=== PATIENT | female | born 1985 | race Caucasian/White ===

== ENCOUNTER 2018-08-10 17:33 | Emergency (ER) | payer SELFPAY ==
[~2018-08-10] VITALS: Ht 170.2 cm; Wt 99.8 kg
--- NOTE | 2018-08-10 17:55 | ED EENT ---
History of Present Illness General Stated Complaint: CONGESTED,EARACHED Source: patient Exam Limitations: no limitations History of Present Illness Date Seen by Provider: Aug 10, 2018 Time Seen by Provider: 17:49 Initial Comments 32-year-old female who presents to the emergency room with complaints of left ear pain that started this morning. She reports that she took Tylenol 30 minutes prior to arrival but does not think had time to work. She reports that she's also had some sinus congestion. Denies fevers. Location: ear (L) Prearrival Treatment: over the counter meds (30 minutes prior to arrival) Associated Symptoms: nasal congestion/drainage Allergies and Home Medications Patient Home Medication List Home Medication List Reviewed: Yes Review of Systems Review of Systems Constitutional: no symptoms reported, see HPI Ears: See HPI, Pain (left ear pain) Nose: see HPI, congestion All Other Systems Reviewed Negative Unless Noted: Yes Past Gqfwqry-Sknsmd-Pvklcc Hx Past Med/Social Hx: Reviewed Nursing Past Med/Soc Hx Patient Social History Recent Foreign Travel: No Contact w/Someone Who Travel: No Family Medical History Reviewed Nursing Family Hx Physical Exam Height, Weight, BMI Height: '" Weight: lbs. oz. kg; BMI Method: General Appearance: WD/WN, no apparent distress Eyes: bilateral eye normal inspection, bilateral eye PERRL, bilateral eye EOMI Ears: bilateral ear auricle normal, bilateral ear canal normal, bilateral ear TM normal (effusion bilaterally), bilateral ear other Mouth/Throat: normal mouth inspection, pharynx normal Cardiovascular: normal peripheral pulses, regular rate, rhythm, no edema, no gallop, no JVD, no murmur Respiratory: chest non-tender, lungs clear, normal breath sounds, no respiratory distress, no accessory muscle use Neurologic/Psychiatric: alert, normal mood/affect, oriented x 3 Skin: normal color, warm/dry Progress/Results/Core Measures Results/Orders My Orders Orders - SRINIVASAN ELENA Influenza A And B Antigens (08/10/18 17:39) Departure Impression Primary Impression: Acute effusion of both middle ears Disposition: 01 HOME, SELF-CARE Condition: Stable/Unchanged Departure-Patient Inst. Decision time for Depature: 17:52 Referrals: NO,LOCAL PHYSICIAN (PCP) Primary Care Physician Patient Instructions: Serous Otitis Media (DC) Add. Discharge Instructions: You may use Tylenol and ibuprofen as directed by the bottle for pain relief. Igsm-frd-xmycush oral decongestants and nasal decongestants could aid in alleviating your congestion. Benadryl as directed by the bottle will help to dry up the fluids. Follow-up with her primary care provider within 1 week. Return back to the emergency room for any worsening symptoms or concerns as needed. SRINIVASAN ELENA Aug 10, 2018 17:55
[2018-08-10 19:05] VITALS: BP 122/80
== END 2018-08-10 19:05 | disposition home or self-care (01) ==
LOC: ER 17:35
DX: H93.93 Unspecified disorder of ear, bilateral (principal)
CPT/HCPCS: 99282

== ENCOUNTER 2019-03-02 18:36 | Emergency (ER) | payer OTHER ==
[~2019-03-02] VITALS: Ht 170.2 cm; Wt 99.8 kg
--- NOTE | 2019-03-02 19:06 | ED Back Pain ---
General Chief Complaint: Back Problems Stated Complaint: L SIDE PAIN Nursing Triage Note: pt states she has had left side/flank pain for 2 weeks. Yesterday she states she urianted blood and now can only urinate a little bit. NO hx of stones Nursing Sepsis Screen: No Definite Risk Source of Information: Patient Exam Limitations: No Limitations History of Present Illness Date Seen by Provider: Mar 02, 2019 Time Seen by Provider: 19:04 Initial Comments To ER with left flank pain for 2 weeks. She's had a couple of episodes of urinating blood, now only dribbles when she urinates and still feels the urge to urinate. She has some intermittent nausea. No fevers or chills. No history of this. Location: Other (Left flank pain) Timing/Duration: Other Severity: Moderate Pain/Injury Location: Abdomen Associated Symptoms: denies symptoms Allergies and Home Medications Allergies Coded Allergies: No Known Drug Allergies (Unverified , 08/10/18) Home Medications Hydrocodone Bit/Acetaminophen 1 Tab Tab, 1 EACH PO Q4-6HR PRN for PAIN-MODERATE Prescribed by: LELA ROJAS on 03/02/191953 Sulfamethoxazole/Trimethoprim 1 Each Tablet, 1 EACH PO BID Prescribed by: LELA ROJAS on 03/02/191953 Tamsulosin HCl 0.4 Mg Cap, 0.4 MG PO DAILY Prescribed by: LELA ROJAS on 03/02/191953 Patient Home Medication List Home Medication List Reviewed: Yes Review of Systems Constitutional: see HPI EENTM: see HPI Respiratory: no symptoms reported Cardiovascular: no symptoms reported Genitourinary: no symptoms reported Musculoskeletal: see HPI Skin: no symptoms reported Psychiatric/Neurological: No Symptoms Reported Past Yykdnqy-Bulfza-Eiigbw Hx Patient Social History Type Used: Cigarettes Recent Foreign Travel: No Contact w/Someone Who Travel: No Recent Infectious Disease Expo: No Recent Hopitalizations: No Immunizations Up To Date Tetanus Booster (TDap): Unknown PED Vaccines UTD: Yes Seasonal Allergies Seasonal Allergies: No Past Medical History Surgeries: No Respiratory: No Cardiac: No Neurological: No [employer] History: Tubal Ligation Genitourinary: No Gastrointestinal: No Musculoskeletal: No Endocrine: No HEENT: No Cancer: No Psychosocial: No Integumentary: No Blood Disorders: No Physical Exam Vital Signs Vital Signs - First Documented 03/02/19 18:44 Temp 99.0 Pulse 116 Resp 20 B/P (MAP) 145/93 (110) Pulse Ox 100 O2 Delivery Room Air Capillary Refill : Less Than 3 Seconds Height, Weight, BMI Height: 5'7.00" Weight: 220lbs. oz. 99.391574gx; BMI Method:Stated General Appearance: No Apparent Distress, WD/WN Neck: Full Range of Motion, Normal Inspection Cardiovascular: Normal Peripheral Pulses, Tachycardia Respiratory: Normal Breath Sounds, No Accessory Muscle Use, No Respiratory Distress Gastrointestinal: Non Tender, Soft Extremity: Normal Capillary Refill, Normal Inspection Neurologic/Psychiatric: Alert, Oriented x3 Skin: Normal Color, Warm/Dry Progress/Results/Core Measures Results/Orders Lab Results Laboratory Tests Test 03/02/19 19:00 Range/Units White Blood Count 13.5 H 4.3-11.0 10^3/uL Red Blood Count 5.26 4.35-5.85 10^6/uL Hemoglobin 14.4 11.5-16.0 G/DL Hematocrit 44 35-52 % Mean Corpuscular Volume 84 80-99 FL Mean Corpuscular Hemoglobin 27 25-34 PG Mean Corpuscular Hemoglobin Concent 33 32-36 G/DL Red Cell Distribution Width 14.8 H 10.0-14.5 % Platelet Count 345 130-400 10^3/uL Mean Platelet Volume 9.6 7.4-10.4 FL Neutrophils (%) (Auto) 69 42-75 % Lymphocytes (%) (Auto) 23 12-44 % Monocytes (%) (Auto) 6 0-12 % Eosinophils (%) (Auto) 2 0-10 % Basophils (%) (Auto) 0 0-10 % Neutrophils # (Auto) 9.3 H 1.8-7.8 X 10^3 Lymphocytes # (Auto) 3.1 1.0-4.0 X 10^3 Monocytes # (Auto) 0.8 0.0-1.0 X 10^3 Eosinophils # (Auto) 0.3 0.0-0.3 10^3/uL Basophils # (Auto) 0.0 0.0-0.1 10^3/uL Urine Color YELLOW Urine Clarity SLIGHTLY CLOUDY Urine pH 6.5 5-9 Urine Specific [place] 1.015 L 1.016-1.022 Urine Protein 1+ H NEGATIVE Urine Glucose (UA) NEGATIVE NEGATIVE Urine Ketones NEGATIVE NEGATIVE Urine Nitrite POSITIVE H NEGATIVE Urine Bilirubin NEGATIVE NEGATIVE Urine Urobilinogen NORMAL NORMAL MG/DL Urine Leukocyte Esterase 3+ H NEGATIVE Urine RBC (Auto) 2+ H NEGATIVE Urine RBC 0-2 /HPF Urine WBC 50-100 H /HPF Urine Squamous Epithelial Cells 0-2 /HPF Urine Crystals NONE /LPF Urine Bacteria LARGE H /HPF Urine Casts NONE /LPF Urine Mucus NEGATIVE /LPF Urine Culture Indicated YES Sodium Level 139 135-145 MMOL/L Potassium Level 3.9 3.6-5.0 MMOL/L Chloride Level 107 98-107 MMOL/L Carbon Dioxide Level 20 L 21-32 MMOL/L Anion Gap 12 5-14 MMOL/L Blood Urea Nitrogen 9 7-18 MG/DL Creatinine 0.87 0.60-1.30 MG/DL Estimat Glomerular Filtration Rate > 60 BUN/Creatinine Ratio 10 Glucose Level 148 H 70-105 MG/DL Calcium Level 9.3 8.5-10.1 MG/DL Serum Test, Qualitative NEGATIVE NEGATIVE My Orders Orders - LELA ROJAS [employer] WORK DIRECTOR Ua Culture If Indicated (03/02/19 18:49) Hcg,Qualitative Serum (03/02/19 18:49) Cbc With Automated Diff (03/02/19 18:50) Basic Metabolic Panel (03/02/19 18:50) Ketorolac Injection (Toradol Injection) (03/02/19 19:15) Lactated Ringers (Lr 1000 Ml Iv Solution (03/02/19 19:15) Ct Abd/Pelvis Wo(Kidney Stone) (03/02/19 19:04) Urine Culture (03/02/19 19:00) Ceftriaxone For Iv Use (Rocephin For I (03/02/19 20:00) Fentanyl Injection (Sublimaze Injection (03/02/19 20:00) Rx-Hydrocodone/Apap 5-325 Mg (Rx-Vicodin (03/02/19 20:00) Tamsulosin Capsule (Flomax Capsule) (03/02/19 20:00) Medications Given in ED Current Medications Medications Dose Ordered Sig/Daisha Route Start Time Stop Time Status Last Admin Dose Admin Acetaminophen/ Hydrocodone Bitart 1 ea Q4H PRN PO 03/02/19 20:00 03/02/19 20:02 1 EA Ceftriaxone Sodium 1000 mg/ Sterile Water 10 ml @ 200 mls/hr ONCE ONCE IV 03/02/19:00 03/02/19 20:02 DC 03/02/19 20:01 200 MLS/HR Fentanyl Citrate 50 mcg ONCE ONCE IVP 03/02/19 20:00 03/02/19 20:01 DC 03/02/19 20:02 50 MCG Ketorolac Tromethamine 15 mg ONCE ONCE IVP 03/02/19 19:15 03/02/19 19:16 DC 03/02/19 19:32 15 MG Vital Signs/I&O 03/02/19 18:44 Temp 99.0 Pulse 116 Resp 20 B/P (MAP) 145/93 (110) Pulse Ox 100 O2 Delivery Room Air Blood Pressure Mean: 110 Diagnostic Imaging Diagonstic Imaging: CT Comments NAME: DIOR BELCHER [facility] REC#: [id number] PT STATUS: REG ER : 1985 PHYSICIAN: LELA ROJAS APRN ADMIT DATE: 03/02/19/ER Draft Date of Exam:03/02/19 CT ABD/PELVIS WO(KIDNEY STONE) PROCEDURE: CT urinary tract, rule out kidney stone. TECHNIQUE: Multiple contiguous axial images were obtained through the abdomen and pelvis without the use of intravenous contrast. Auto Exposure Controls were utilized during the CT exam to meet ALARA standards for radiation dose reduction. DATE: March 02, 2019. COMPARISON: None. INDICATION: 33-year-old female, left flank pain for two weeks with hematuria. History of cervical cancer. FINDINGS: There are limitations for evaluation of the abdominal organs, neoplastic processes, abscess and limited evaluation of the vasculature relating to the lack of intravenous contrast. There is a 3 mm noncalcified right middle lobe pulmonary nodule on axial image 5. The additional visualized portions of the lung bases are clear. The heart is not enlarged. There is no identified pericardial effusion. The liver is normal in size and contour. The gallbladder is unremarkable. There is no identified intrahepatic or extrahepatic bile duct dilation. The main pancreatic duct is not abnormally dilated. Unremarkable noncontrast appearance of the pancreatic parenchyma. The spleen is normal in size. The adrenal glands are unremarkable. There are multiple bilateral nonobstructing renal stones. The medullary pyramids are hyperdense, bilaterally, suggesting medullary nephrocalcinosis. There is mild left hydroureteronephrosis. There are two subjacent stones in the left distal ureter seen on axial image 107, measuring 4 mm and 2 mm in size. The urinary bladder is underdistended. There is no obvious urinary bladder wall thickening. There is no identified right ureteral stone or right hydronephrosis. There is a fat-containing lesion in the left kidney best seen on coronal image 70 compatible with an angiomyolipoma which measures 8 mm in size. The intestinal tract is not distended. The appendix is best seen on axial image 69 and is normal. There is no free intraperitoneal air. There is no drainable fluid collection. There is no free pelvic fluid. There is no identified abnormally enlarged lymph node in the abdomen or pelvis which meets CT size criteria for adenopathy. There is no identified acute bony abnormality. IMPRESSION: CT abdomen and pelvis: 1. Two adjacent stones in the left distal ureter measuring 4 mm and 2 mm in size with associated mild left hydroureteronephrosis. 2. Several nonobstructing bilateral renal stones with hyperdense medullary pyramids suggesting medullary nephrocalcinosis. 3. 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 Dictated on workstation # [id number] Dict: 03/02/191931 Trans: 03/02/191953 [facility] [id number] Interpreted by: ARNAUD MURGUIA MD Electronically signed by: Departure Impression Primary Impression: Left ureteral stone Disposition: 01 HOME, SELF-CARE Condition: Stable Departure-Patient Inst. Decision time for Depature: 19:52 Referrals: NO,LOCAL PHYSICIAN (PCP/Family) Primary Care Physician Patient Instructions: Kidney Stones (DC) Add. Discharge Instructions: 1. Medication as directed 2. Return to ER for any high fever, worsening pain, vomiting that she cannot stop or other concerns. Follow-up with your doctor later this week for recheck. All discharge instructions reviewed with patient and/or family. Voiced understanding. Scripts Sulfamethoxazole/Trimethoprim (Bactrim Ds Tablet) 1 Each Tablet 1 EACH PO BID, #14 TAB Prov: LELA ROJAS APRN 03/02/19 Tamsulosin HCl (Flomax) 0.4 Mg Cap 0.4 MG PO DAILY, #14 CAP Prov: LELA ROJAS APRN 03/02/19 Hydrocodone Bit/Acetaminophen (Hydrocodone/Acetaminophen 5/325mg Tablet) 1 Tab Tab 1 EACH PO Q4-6HR PRN for PAIN-MODERATE MDD 10 for 3 Days, #14 TAB Prov: LELA ROJAS APRN 03/02/19 Work/School Note: Work Release Form Date Seen in the Emergency Department: Mar 02, 2019 Return to Work: Mar 04, 2019 LELA ROJAS APRN Mar 02, 2019 19:06
[2019-03-02 19:09] LABS: BASOPHILS % (AUTO) 0 % (0-10); EOSINOPHILS # (AUTO) 0.3 10^3/uL (0.0-0.3); EOSINOPHILS % (AUTO) 2 % (0-10); HEMATOCRIT 44 % (35-52); HEMOGLOBIN 14.4 G/DL (11.5-16.0); LYMPHOCYTES # (AUTO) 3.1 X 10^3 (1.0-4.0); LYMPHOCYTES % (AUTO) 23 % (12-44); MEAN CORPUSCULAR HEMOGLOBIN 27 PG (25-34); MEAN CORPUSCULAR HGB CONC 33 G/DL (32-36); MEAN CORPUSCULAR VOLUME 84 FL (80-99); MEAN PLATELET VOLUME 9.6 FL (7.4-10.4); MONOCYTES # (AUTO) 0.8 X 10^3 (0.0-1.0); MONOCYTES % (AUTO) 6 % (0-12); NEUTROPHILS # (AUTO) 9.3 X 10^3 (1.8-7.8); NEUTROPHILS % (AUTO) 69 % (42-75); PLATELET COUNT 345 10^3/uL (130-400); RED CELL DISTRIBUTION WIDTH 14.8 % (10.0-14.5); WHITE BLOOD COUNT 13.5 10^3/uL (4.3-11.0)
[2019-03-02 19:10] LABS: BILIRUBIN,URINE NEGATIVE (NEGATIVE); CLARITY,URINE SLIGHTLY CLOUDY; COLOR,URINE YELLOW; GLUCOSE, URINE (UA) NEGATIVE (NEGATIVE); KETONES,URINE NEGATIVE (NEGATIVE); LEUKOCYTE ESTERASE ,URINE 3+ (NEGATIVE); NITRITE,URINE POSITIVE (NEGATIVE); PH,URINE 6.5 (5-9); PROTEIN,URINE 1+ (NEGATIVE); UROBILINOGEN,URINE NORMAL (NORMAL)
[2019-03-02 19:15] LABS: BACTERIA,URINE LARGE /HPF; RBC,URINE 0-2 /HPF; SQUAMOUS EPITHELIAL CELL,UR 0-2 /HPF; WBC,URINE 50-100 /HPF
[2019-03-02] MEDS ORDERED: LACTATED RINGERS 1,000 ML IV SCH (19:15)
[2019-03-02] MEDS ORDERED: KETOROLAC 30 MG/ML VIAL IVP ONE (19:15)
[2019-03-02 19:26] LABS: BUN/CREATININE RATIO 10; CALCIUM 9.3 MG/DL (8.5-10.1); CARBON DIOXIDE 20 MMOL/L (21-32); CHLORIDE 107 MMOL/L (98-107); CREATININE SERUM 0.87 MG/DL (0.60-1.30); GFR ESTIMATED > 60; GLUCOSE 148 MG/DL (70-105); POTASSIUM 3.9 MMOL/L (3.6-5.0); SODIUM 139 MMOL/L (135-145)
[2019-03-02] MEDS ORDERED: TAMS0.4C98 PO (19:54)
[2019-03-02] MEDS ORDERED: SULF1TAB35 PO (19:54)
[2019-03-02] MEDS ORDERED: ACHD5005 PO (19:54)
--- NOTE | 2019-03-02 19:54 | Diagnostic Imaging Report ---
PROCEDURE: CT urinary tract, rule out kidney stone. TECHNIQUE: Multiple contiguous axial images were obtained through the abdomen and pelvis without the use of intravenous contrast. Auto Exposure Controls were utilized during the CT exam to meet ALARA standards for radiation dose reduction. DATE: March 02, 2019. COMPARISON: None. INDICATION: 33-year-old female, left flank pain for two weeks with hematuria. History of cervical cancer. FINDINGS: There are limitations for evaluation of the abdominal organs, neoplastic processes, abscess and limited evaluation of the vasculature relating to the lack of intravenous contrast. There is a 3 mm noncalcified right middle lobe pulmonary nodule on axial image 5. The additional visualized portions of the lung bases are clear. The heart is not enlarged. There is no identified pericardial effusion. The liver is normal in size and contour. The gallbladder is unremarkable. There is no identified intrahepatic or extrahepatic bile duct dilation. The main pancreatic duct is not abnormally dilated. Unremarkable noncontrast appearance of the pancreatic parenchyma. The spleen is normal in size. The adrenal glands are unremarkable. There are multiple bilateral nonobstructing renal stones. The medullary pyramids are hyperdense, bilaterally, suggesting medullary nephrocalcinosis. There is mild left hydroureteronephrosis. There are two subjacent stones in the left distal ureter seen on axial image 107, measuring 4 mm and 2 mm in size. The urinary bladder is underdistended. There is no obvious urinary bladder wall thickening. There is no identified right ureteral stone or right hydronephrosis. There is a fat-containing lesion in the left kidney best seen on coronal image 70 compatible with an angiomyolipoma which measures 8 mm in size. The intestinal tract is not distended. The appendix is best seen on axial image 69 and is normal. There is no free intraperitoneal air. There is no drainable fluid collection. There is no free pelvic fluid. There is no identified abnormally enlarged lymph node in the abdomen or pelvis which meets CT size criteria for adenopathy. There is no identified acute bony abnormality. IMPRESSION: CT abdomen and pelvis: 1. Two adjacent stones in the left distal ureter measuring 4 mm and 2 mm in size with associated mild left hydroureteronephrosis. 2. Several nonobstructing bilateral renal stones with hyperdense medullary pyramids suggesting medullary nephrocalcinosis. 3. 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 Dictated by: Dictated on workstation # [id number]
[2019-03-02] MEDS ORDERED: RX-HYDROCODONE/APAP 5/325 MG #4 TAB PK PO PRN (20:00)
[2019-03-02] MEDS ORDERED: cefTRIAXone FOR IV USE 1,000 MG in WATER (STERILE) FOR INJECTION 10 ML IV ONE (20:00)
[2019-03-02] MEDS ORDERED: fentaNYL INJECTION 100 MCG/2 ML AMP IVP ONE (20:00)
[2019-03-02] MEDS ORDERED: TAMSULOSIN 0.4 MG (FLOMAX) CAP PO SCH (20:00)
[2019-03-02 20:10] VITALS: BP 135/89
[2019-03-06] MEDS ORDERED: NITR-65 PO (11:37)
== END 2019-03-02 20:12 | disposition home or self-care (01) ==
LOC: EDUNIT# 18:36 → ER 18:37
DX: N13.2 Hydronephrosis with renal and ureteral calculous obstruction (principal); Z98.51 Tubal ligation status
CPT/HCPCS: 36415; 74176; 80048; 81000; 84703; 85025; 87077; 87088; 87186; 96361; 96374; 96375